=== PATIENT | female | born 1995 | race Caucasian/White ===

== ENCOUNTER 2017-03-19 12:21 | Emergency (ER) | payer BC ==
--- NOTE | 2017-03-19 13:41 | RAD ---
INDICATION: RIGHT hand pain following punching injury; attention third and fourth metacarpals. COMPARISON: No relevant prior exams available on the [facility] for comparison. TECHNIQUE: AP, lateral, and oblique views RIGHT hand. REPORT AND IMPRESSION: Negative for fracture or malalignment. Soft tissue swelling over the dorsum of the hand at the level of the metacarpal phalangeal joints.
--- NOTE | 2017-03-19 13:52 | UC ---
Hand/Wrist HPI - HPI Summary HPI Summary: PUNCHED RIGHT HAND AGAINST BRICK WALL TWENTY TIMES YESTERDAY WHILE ANGRY. PAIN IN KNUCKLES OF RIGHT HAND. MILD SOFT TISSUE SWELLING. 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 Hx Last Menstrual Period: 03/01/17 Onset/Duration: Sudden Onset, Lasting Hours Severity Initially: Moderate Severity Currently: Moderate Aggravating Factor(s): Flexion, Extension Associated Signs And Symptoms: Positive: Swelling Related History: Dominant Hand Right - Allergies/Home Medications Allergies/Adverse Reactions: Allergies Allergy/AdvReac Type Severity Reaction Status Date / Time No Known Allergies Allergy Verified 03/19/17 13:07 Home Medications: Home Medications Oral Contraceptive 1 tab PO DAILY 03/19/17 [History Confirmed 03/19/17] PMH/Surg Hx/FS Hx/Imm Hx Previously Healthy: Yes - Surgical History Surgical History: None - Family History Known Family History: Negative: Seizure Disorder, Blood Disorder - Social History Occupation: Student Lives: Dormitory/Roommates Alcohol Use: None Substance Use Type: None Smoking Status (MU): Never Smoked Tobacco Review of Systems Constitutional: Negative Skin: Negative Eyes: Negative ENT: Negative Respiratory: Negative Cardiovascular: Negative Gastrointestinal: Negative Genitourinary: Negative Motor: Negative Neurovascular: Negative Musculoskeletal: Arthralgia, Myalgia Neurological: Negative Psychological: Negative Is Patient Immunocompromised?: No All Other Systems Reviewed And Are Negative: Yes Physical Exam Triage Information Reviewed: Yes Appearance: Well-Appearing, No Pain Distress, Well-Nourished Vital Signs: Initial Vital Signs Temp 98 F 03/19/17 13:02 Pulse 79 03/19/17 13:02 Resp 14 03/19/17 13:02 BP 111/70 03/19/17 13:02 Pulse Ox 99 03/19/17 13:02 Vital Signs Reviewed: Yes Eye Exam: Normal ENT Exam: Normal ENT: Positive: Normal ENT inspection, Hearing grossly normal Dental Exam: Normal Neck exam: Normal Neck: Positive: Supple, Nontender, No Lymphadenopathy Respiratory Exam: Normal Respiratory: Positive: Chest non-tender, Lungs clear, Normal breath sounds, No respiratory distress, No accessory muscle use Cardiovascular Exam: Normal Cardiovascular: Positive: RRR, No Murmur, Pulses Normal, Brisk Capillary Refill Abdominal Exam: Normal Abdomen Description: Positive: Nontender, No Organomegaly Musculoskeletal: Positive: Strength Intact, ROM Intact, No Edema, Other: - TENDER TO DISTAL METACARPALS OF RIGHT 3,4,5TH DIGITS. MILD SOFT TISSUE SWELLING. Diagnostics - Radiology No standard instances Xray Interpretation: Positive (See Comments) Radiology Interpretation Completed By: Radiologist - Interpreted by radiologist , reviewed by SJ. Interpretation : MILD SOFT TISSUE SWELLING, NO FRACTURE Hand/Wrist Course/Dx - Differential Dx/Diagnosis Differential Diagnosis/HQI/PQRI: Fracture, Sprain, Strain Provider Diagnoses: RIGHT HAND SPRAIN/CONTUSION Discharge - Discharge Plan Condition: Stable Disposition: HOME Patient Education Materials: Contusion in Adults (ED), Hand Sprain (ED) Referrals: [facility] [Outside] - If Needed [facility]FERR[facility] [Outside] Images Hands: 1 - TENDER TO DISTAL METACARPALS OF RIGHT 3,4,5TH DIGITS. MILD SOFT TISSUE SWELLING.
== END 2017-03-19 13:54 | disposition home or self-care (01) ==
LOC: UCCORT 12:21
DX: S63.91XA Sprain of unspecified part of right wrist and hand, initial encounter (principal); S60.221A Contusion of right hand, initial encounter; W22.09XA Striking against other stationary object, initial encounter; Y93.9 Activity, unspecified; Y92.9 Unspecified place or not applicable
CPT/HCPCS: 99202; G0463

== ENCOUNTER 2017-05-12 12:09 | Emergency (ER) | payer BC ==
--- NOTE | 2017-05-12 16:23 | UC ---
Complaint Female HPI - HPI Summary HPI Summary: 21 year old female with urinary complaint. LOW BACK PAIN, FATIGUE FOR TWO DAYS. NO PAIN OR BURNING WITH URINATION. CHILLS ON AND OFF. STATES HAVING A WHITE/ YELLOW VAGINAL DISCHARGE. DENIES VAGINAL ITCHING. PT WOULD ALSO LIKE HER EARS CHECKED, EAR PAIN ON AND OFF . no abdominal pain. no fever [ End ] - History Of Current Complaint Stated Complaint: URINARY Time Seen by Provider: 05/12/17 16:21 Hx Obtained From: Patient Hx Last Menstrual Period: 03/01/17 Onset/Duration: Gradual Onset Timing: Constant Severity Initially: Mild Severity Currently: Moderate - Allergies/Home Medications Allergies/Adverse Reactions: Allergies Allergy/AdvReac Type Severity Reaction Status Date / Time MS Latex Allergy Unknown RASH/BLISTE Verified 05/12/17 16:45 RES Home Medications: Home Medications Anxiety Med, ?Name 05/12/17 [History] Ibuprofen TAB* [Advil TAB*] 600 mg PO Q6H PRN 05/12/17 [History Confirmed ] Naproxen Sodium [Naproxen Sodium 220 mg] 220 mg PO PRN 05/12/17 [History] PMH/Surg Hx/FS Hx/Imm Hx Previously Healthy: Yes - Surgical History Surgical History: None - Family History Known Family History: Negative: Seizure Disorder, Blood Disorder - Social History Occupation: Student Alcohol Use: None Substance Use Type: None Smoking Status (MU): Never Smoked Tobacco Review of Systems ENT: Ear Ache Genitourinary: Frequency, Urgency Is Patient Immunocompromised?: No All Other Systems Reviewed And Are Negative: Yes Physical Exam Triage Information Reviewed: Yes Appearance: Well-Appearing, No Pain Distress, Well-Nourished Vital Signs Reviewed: Yes Eye Exam: Normal ENT Exam: Normal Dental Exam: Normal Neck exam: Normal Neck: Positive: 1 Respiratory Exam: Normal Cardiovascular Exam: Normal Abdominal Exam: Normal Abdomen Description: Positive: Nontender, No Organomegaly, Soft. Negative: CVA Tenderness (R), CVA Tenderness (L) Musculoskeletal Exam: Normal Neurological Exam: Normal Psychological Exam: Normal Skin Exam: Normal Complaint Female Dx - Course Course Of Treatment: Advised to have pelvic but declined. she is adament that she has no sexual partners, no STD concern, no itching vaginally, but has had possible white discharge, of note just did finish augmentin for sinus infection indicating potential yeast infection, ? BV -she has never had BV or any infection, no previous [employer] exam and once again declined here for having one and aware if any concerns for STD/PID she could end up in hospital or become infertile. with the recent U/A at [facility] which revealed (+) trace leuks will send for culture as well. RTO in a few days if the discharge not resolved. she is aware and agreeable - Differential Dx/Diagnosis Differential Diagnosis/HQI/PQRI: Urinary Tract Infection Provider Diagnoses: UTI Discharge - Discharge Plan Condition: Good Disposition: HOME Prescriptions: Sulfamethox/Trimethoprim DS* [Bactrim DS 800/160 TAB*] 1 tab PO BID #10 tab Patient Education Materials: Urinary Tract Infection in Women (DC) Referrals: Non Staff,Doctor [Primary Care Provider] - 5 Days Additional Instructions: WE DISCUSSED IF YOUR SYMPTOMS ARE NOT COMPLETELY RESOLVED PLEASE RETURN FOR FURTHER EVALUATION
[2017-05-12 16:26] VITALS: BP 108/59
== END 2017-05-12 17:20 | disposition home or self-care (01) ==
LOC: UCCORT 12:09
DX: N39.0 Urinary tract infection, site not specified (principal)
CPT/HCPCS: 99212; G0463